=== PATIENT | female | born 1965 | race Caucasian/White ===

== ENCOUNTER 2022-02-25 21:16 | Emergency (ER) | payer SELFPAY ==
[2022-02-25 21:29] VITALS: BP 145/75; PULSE 68; RESP 16; TEMP 36.5; O2SAT 94
--- NOTE | 2022-02-25 23:15 | ED_ITS ---
HPI - Female Genitourinary General: Chief complaint: Urogenital-Female Stated complaint: Burning with urination Time Seen by Provider: 02/25/22 23:15 History of Present Illness: 57-year-old female comes in today for complaints of urinary pain and bladder pressure. Patient recently come off antibiotics for an infection but after stopping the antibiotics the symptoms became worse again. Review of Systems Const: Reports: chills; Denies: fever(s) : Reports: dysuria and urinary frequency Physical Exam Const: COMMON NORMALS: alert HENMT: COMMON NORMALS: normocephalic HEAD & SCALP: normocephalic Resp: COMMON NORMALS: normal respiratory effort Cardio: COMMON NORMALS: regular rate RATE: regular rate : COMMON NORMALS: Yes no CVA tenderness BLADDER/KIDNEY EXAM: Yes no CVA tenderness Back/Pelvis: COMMON NORMALS: no CVA tenderness Neuro: SENSORIUM/ORIENTATION: Yes alert Skin: COMMON NORMALS: no rashes or lesions noted GENERAL SKIN EXAM: no rashes or lesions noted Course Vital Signs: Vital signs: Vital Signs Temperature 97.7 F 02/25/22 21:29 Pulse Rate 68 02/25/22 21:29 Respiratory Rate 16 02/25/22 21:29 Blood Pressure 145/75 02/25/22 21:29 Pulse Oximetry 94 02/25/22 21:29 Oxygen Delivery Me thod 02/25/22 21:29 MDM - Female Medical Decision Making 57-year-old female comes in today for complaints of painful urination and lower abdominal discomfort. On exam patient has no CVA tenderness. Abdomen soft nontender. Skin is warm and dry. Vital signs are normal. Differential diagnosis includes but not limited to cystitis, pyelonephritis, renal calculi. No CVA tenderness is noted. Patient's urine did show a large amount of white blood cells and red blood cells. Believe the patient probably has cystitis we will start patient with 1 g of Rocephin and have her follow-up in 1 week for recheck of urine. Patient will be continued on cephalexin and some Pyridium for 2 days. Patient reported understanding agreed to plan. Lab Data Laboratory Results Urine Color Billie (Yellow) 02/25/22 23:20 Urine Appearance Cloudy (CLEAR) 02/25/22 23:20 Urine pH 5 (5-7) 02/25/22 23:20 Ur Specific [place] 1.015 (1.005-1.030) 02/25/22 23:20 Urine Protein 3+ (Negative) H 02/25/22 23:20 Urine Glucose (UA) Norm (Normal) 02/25/22 23:20 Urine Ketones 1+ (Negative) H 02/25/22 23:20 Urine Blood 3+ (Negative) H 02/25/22 23:20 Urine Nitrate Positive (Negative) H 02/25/22 23:20 Urine Bilirubin 3+ (Negative) H 02/25/22 23:20 Urine Urobilinogen 4+ mg/dL (Negative) H 02/25/22 23:20 Ur Leukocyte Esterase 2+ (Negative) H 02/25/22 23:20 Urine RBC >100 /hpf (0-2) H 02/25/22 23:20 Urine WBC 80-100 /hpf (0-5) H 02/25/22 23:20 Ur Squamous Epith Cells 0-4 /hpf (0-5) H 02/25/22 23:20 Amorphous Sediment Not Reportable 02/25/22 23:20 Urine Bacteria Trace /hpf (NONE) 02/25/22 23:20 Urine Mucus Trace /hpf 02/25/22 23:20 Discharge Plan Discharge Patient Disposition: Home Clinical Impression: Cystitis Condition: Stable Prescriptions: New cephalexin 500 mg tablet 500 mg PO BID 7 Days Qty: 14 0RF phenazopyridine 200 mg tablet 200 mg PO TID Qty: 6 0RF Discharge Orders: Discharge ED (Routine); Ordered 02/25/22 Ordered By: Richard Bojorquez Discharge Diet: Usual diet Discharge Activity: Increase activity as tolerated Patient Instructions: Opioid Safety, Pain Management Activity Restrictions/Additional Instructions: Home and rest. Drink plenty of water. Take antibiotic cephalexin 500 mg twice a day for 7 days. Use Pyridium 200 mg 3 times a day for the next 2 days. Follow-up with primary care in 1 week for recheck. Return to ER for new concerns. Coding Level of Care Code ED [employer] for [facility]
[2022-02-25 23:32] LABS: Glucose Urine UA Norm (Normal); Ketones Urine 1+ (Negative); Protein Urine 3+ (Negative); Specific Gravity, Urine 1.015 (1.005-1.030); Urine Appearance Cloudy (CLEAR); Urine Color Amber (Yellow); pH Urine 5 (5-7)
[2022-02-25 23:33] LABS: Add Urine Microscopic? YES; Bilirubin Urine 3+ (Negative); Blood Urine 3+ (Negative); Leukocyte Esterase Urine 2+ (Negative); Nitrate Urine Positive (Negative); RBC Urine >100 /hpf (0-2); Urobilinogen Urine 4+ mg/dL (Negative); WBC Urine 80-100 /hpf (0-5)
[2022-02-25 23:34] LABS: Add Urine Culture? Yes; Bacteria Urine TRACE /hpf; Mucus Urine TRACE /hpf; Squamous Epithelial Cell Urine 0-4 /hpf (0-5)
[2022-02-25] MEDS: phenazopyridine 100 mg Tablet 200 MG PO (23:44)
[2022-02-26] MEDS: cefTRIAXone 1,000 MG in lidocaine 1% 2.1 ML 1 MG IM (00:24)
--- NOTE | 2022-02-26 00:25 | PC.NURSE ---
Rocephin given IM, MAR charted infusion rate which was N/A
== END 2022-02-26 00:27 | disposition home or self-care (01) ==
PROVIDERS: Emergency Provider Nurse Practitioner Family
DX: N30.90 Cystitis, unspecified without hematuria (principal)
CPT/HCPCS: 81001; 87077; 87086; 87186; 96372; 99284; J0696